=== PATIENT | female | born 2000 | race Caucasian/White ===

== ENCOUNTER 2024-03-17 07:33 | Emergency (ER) | payer MEDICAID, SELFPAY ==
[2024-03-17 07:44] VITALS: BP 126/71; PULSE 87; RESP 16; TEMP 36.8; O2SAT 96; BMI 35.6
[2024-03-17 08:10] LABS: Basophils % 0.6 %; Eosinophils # 0.2 10^3/uL (0.0-0.8); Eosinophils % 2.2 %; Hematocrit 40.7 % (36-47); Lymphocytes # 3.2 10^3/uL (0.8-4.8); Lymphocytes % 46.4 %; Mean Corpuscular HGB Conc 33.4 g/dL (30-55); Mean Corpuscular Hemoglobin 28.4 pg (27-33); Mean Platelet Volume 9.9 fL (7.4-10.4); Monocytes # 0.5 10^3/uL (0.2-0.9); Monocytes % 7.7 %; Neutrophils # 2.97 10^3/uL (1.8-7.7); Neutrophils % 42.8 %; Nucleated Red Blood Cells % 0 %; Platelet Count 174 10^3/cmm (157-399); Red Blood Count 4.79 10^6/uL (3.85-5.65); Red Cell Distribution Width 12.4 % (12.1-15.1); White Blood Count 6.92 10^3/uL (3.29-11.43)
--- NOTE | 2024-03-17 08:20 | ED_ITS ---
HPI - Abdominal Pain 2 General: Chief Complaint: Abdominal Pain Stated Complaint: Abd pain Time Seen by Provider: 03/17/24 07:34 Source: patient Mode of arrival: ambulatory Limitations: no limitations History of Present Illness: 23-year-old female states she been havin g abdominal cramping over the last week. She states she is mainly concerned she may be because she has been 1 week late for her menstruation has been having diffuse cramping denies any severe pain rates pain a 3 out of 10 denies any dysuria or vaginal discharge she had tubal ligation last year. Denies any vomiting or diarrhea Associated Symptoms: Denies chills, diarrhea, dysuria, fever(s), nausea and vomiting Related Data Date of Last Menstrual Period: 02/04/24 Previous Rx's Medication Instructions Recorded naproxen 500 mg tablet (Naprosyn) 500 mg PO BID PRN pain #20 tabs 03/17/24 ondansetron 4 mg disintegrating 4 mg PO Q6H PRN nausea and 03/17/24 tablet vomiting #14 tabs Allergies Allergy/AdvReac Type Severity Reaction Status Date / Time chlorhexidine Allergy ALGY-Hives Verified 03/17/24 07:54 Review of Systems 2 Const: Denies: fever(s), chills, body aches or change in appetite ENMT: Denies: throat pain or dental pain Card: Denies: chest pain Resp: Denies: dyspnea GI: Reports: abdominal pain; Denies: nausea, vomiting or diarrhea : Denies: dysuria Musc: Denies: neck pain or back pain Skin/Breast: Denies: rash Neuro: Denies: headache(s) [facility] ED 2 Female Reproductive History: Date of last menstrual period: 02/04/24 Physical Exam 2 Const: COMMON NORMALS: no acute distress, patient oriented x3 and healthy appearing HENMT: COMMON NORMALS: normocephalic and atraumatic HEAD & SCALP: n ormocephalic and atraumatic Eye: COMMON NORMALS: conjunctivae normal CONJUNCTIVA: Yes conjunctivae normal Neck/C-Spine: COMMON NORMALS: full ROM and supple Chest: COMMONS NORMALS: normal inspection of the chest Resp: COMMON NORMALS: normal respiratory effort Cardio: COMMON NORMALS: regular rate, regular rhythm and No murmurs present (Cardio) RATE: regular rate RHYTHM: regular rhythm GI: COMMON NORMALS: Normal to inspection, nondistended, normoactive bowel sounds present, Soft to palpation, non-tender and no masses PALPATION: Yes Soft to palpation Extremity: COMMON NORMALS: normal to inspection and full ROM Neuro: COMMON NORMALS: patient oriented x3, moves all extremities and no focal motor deficits Psych: COMMON NORMALS: mental status grossly normal, Normal thought process present and cooperative THOUGHT PROCESS: Normal thought process present Skin: COMMON NORMALS: no rashes or lesions noted and no wounds GENERAL SKIN EXAM: no rashes or lesions noted Course 2 Vital Signs: Vital signs: Vital Signs Temperature 98.3 F 03/17/24 07:44 Pulse Rate 87 03/17/24 07:44 Respiratory Rate 16 03/17/24 07:44 Blood Pressure 126/71 03/17/24 07:44 Pulse Oximetry 96 03/17/24 07:44 Oxygen Delivery Me thod Room Air 03/17/24 07:44 MDM - Abdominal Pain Medical Decision Making Patient presents here with abdominal pain her exam here is benign she has no signs of acute surgical abdomen blood work including white count and are negative no UTI no signs of STD she is to follow-up with her PCP return if worsening she understands agrees to plan. Medical Records I reviewed the patient's medical records. Lab Data I reviewed the patient's lab results. 03/17/24 07:56 03/17/24 07:56 Labs/Radiology: Laboratory Results WBC 6.92 10^3/uL (3.29-11.43) 03/17/24 07:56 RBC 4.79 10^6/uL (3.85-5.65) 03/17/24 07:56 Hgb 13.60 g/dL (11.27-16.99) 03/17/24 07:56 Hct 40.7 % (36-47) 03/17/24 07:56 MCV 85.0 fl (85-98) 03/17/24 07:56 MCH 28.4 pg (27-33) 03/17/24 07:56 MCHC 33.4 g/dL (30-55) 03/17/24 07:56 RDW 12.4 % (12.1-15.1) 03/17/24 07:56 Plt Count 174 10^3/cmm (157-399) 03/17/24 07:56 MPV 9.9 fL (7.4-10.4) 03/17/24 07:56 Neut % (Auto) 42.8 % 03/17/24 07:56 Lymph % (Auto) 46.4 % 03/17/24 07:56 Weber % (Auto) 7.7 % 03/17/24 07:56 Eos % (Auto) 2.2 % 03/17/24 07:56 Baso % (Auto) 0.6 % 03/17/24 07:56 Neut # (Auto) 2.97 10^3/uL (1.8-7.7) 03/17/24 07:56 Lymph # (Auto) 3.2 10^3/uL (0.8-4.8) 03/17/24 07:56 Weber # (Auto) 0.5 10^3/uL (0.2-0.9) 03/17/24 07:56 Eos # (Auto) 0.2 10^3/uL (0.0-0.8) 03/17/24 07:56 Baso # (Auto) 0.0 10^3/uL (0.0-0.1) 03/17/24 07:56 Nucleated RBC % (auto) 0 % 03/17/24 07:56 Nucleated RBCs # 0.0 /100WBC 03/17/24 07:56 Sodium 138 mmol/L (136-145) 03/17/24 07:56 Potassium 3.6 mmol/L (3.5-5.1) 03/17/24 07:56 Chloride 103 mmol/L (98-107) 03/17/24 07:56 Carbon Dioxide 19 mmol/L (22-29) L 03/17/24 07:56 Anion Gap 19.6 (5-19) H 03/17/24 07:56 BUN 8 mg/dL (6-20) 03/17/24 07:56 Creatinine 0.7 mg/dL (0.5-0.9) 03/17/24 07:56 GFR Calculation 102.0 mL/min (90-130) 03/17/24 07:56 Glucose 95 mg/dL (65-115) 03/17/24 07:56 Calculated Osmolality 284 mOsm/kg (285-295) L 03/17/24 07:56 Calcium 8.8 mg/dL (8.5-10.5) 03/17/24 07:56 Total Bilirubin 0.6 mg/dL (0.15-1.2) 03/17/24 07:56 AST 15 U/L (0-32) 03/17/24 07:56 ALT 14 U/L (0-33) 03/17/24 07:56 Alkaline Phosphatase 70 U/L (35-105) 03/17/24 07:56 Total Protein 6.7 g/dL (6.6-8.7) 03/17/24 07:56 Albumin 4.0 g/dL (3.5-5.2) 03/17/24 07:56 Globulin 2.7 g/dL (1.3-4.6) 03/17/24 07:56 Lipase 20 U/L (13-60) 03/17/24 07:56 HCG, Qual Negative (Negative) 03/17/24 07:56 Urine Color Dark yellow (Yellow) A 03/17/24 08:10 Urine Appearance Clear (CLEAR) 03/17/24 08:10 Urine pH 5.5 (5-7) 03/17/24 08:10 Ur Specific [place] 1.031 (1.005-1.030) H 03/17/24 08:10 Urine Protein Trace (Negative) A 03/17/24 08:10 Urine Glucose (UA) Negative (Normal) 03/17/24 08:10 Urine Ketones Trace (Negative) 03/17/24 08:10 Urine Blood Negative (Negative) 03/17/24 08:10 Urine Nitrate Negative (Negative) 03/17/24 08:10 Urine Bilirubin Negative (Negative) 03/17/24 08:10 Urine Urobilinogen 1.0 mg/dL (Negative) 03/17/24 08:10 Ur Leukocyte Esterase Negative (Negative) 03/17/24 08:10 Urine RBC 0-2 /hpf (0-2) 03/17/24 08:10 Urine WBC 0-5 /hpf (0-5) 03/17/24 08:10 Ur Squamous Epith Cells 0-5 /hpf (0-5) 03/17/24 08:10 Amorphous Sediment Not Reportable 03/17/24 08:10 Urine Bacteria None seen /hpf (NONE) 03/17/24 08:10 Hyaline Casts 1.21 /lpf 03/17/24 08:10 No radiology studies performed this visit Discharge Plan Discharge Patient Disposition: Home Clinical Impression: Abdominal pain Condition: Stable Prescriptions: New ondansetron 4 mg tablet,disintegrating 4 mg PO Q6H PRN (Reason: nausea and vomiting) Qty: 14 0RF naproxen [Naprosyn] 500 mg tablet 500 mg PO BID PRN (Reason: pain) Qty: 20 0RF Discharge Orders: Discharge ED (Routine); Ordered 03/17/24 Ordered By: Ari Palumbo Referrals: Kaye Herzog [Primary Care Provider] - Discharge Diet: Advance as tolerated Discharge Activity: Resume usual activity Patient Instructions: Abdominal Pain (ED) Coding Level of Care Code ED Personal Care Service Provider for Bk Evans
[2024-03-17 08:26] LABS: HCG, Serum Qual Negative (Negative)
[2024-03-17 08:27] LABS: Alanine Aminotransferase 14 U/L (0-33); Alkaline Phosphatase 70 U/L (35-105); Anion Gap 19.6 (5-19); Aspartate Amino Transferase 15 U/L (0-32); Blood Urea Nitrogen 8 mg/dL (6-20); Calcium 8.8 mg/dL (8.5-10.5); Carbon Dioxide 19 mmol/L (22-29); Chloride 103 mmol/L (98-107); Creatinine Clr Calc Pharmacy 141.6359; Globulin 2.7 g/dL (1.3-4.6); Glucose 95 mg/dL (65-115); Lipase 20 U/L (13-60); Osmolality Calculated 284 mOsm/kg (285-295); Potassium 3.6 mmol/L (3.5-5.1); Sodium 138 mmol/L (136-145); Total Bilirubin 0.6 mg/dL (0.15-1.2); Total Protein 6.7 g/dL (6.6-8.7)
[2024-03-17 08:43] LABS: Bilirubin Urine Negative (Negative); Blood Urine Negative (Negative); Glucose Urine UA Negative (Normal); Ketones Urine Trace (Negative); Leukocyte Esterase Urine Negative (Negative); Nitrate Urine Negative (Negative); Protein Urine Trace (Negative); Urine Appearance Clear (CLEAR); Urine Color Dark Yellow (Yellow); pH Urine 5.5 (5-7)
[2024-03-17 08:48] LABS: Add Urine Microscopic? YES; Bacteria Urine None Seen /hpf; Hyaline Casts Urine 1.21 /lpf; RBC Urine 0-2 /hpf (0-2); Squamous Epithelial Cell Urine 0-5 /hpf (0-5); WBC Urine 0-5 /hpf (0-5)
[2024-03-17 08:51] LABS: Specific Gravity, Urine 1.031 (1.005-1.030)
[2024-03-17 09:15] VITALS: BP 112/67; PULSE 82; O2SAT 98
[2024-03-17] MEDS: ondansetron 4 MG Tablet PO (09:20)
== END 2024-03-17 09:20 | disposition home or self-care (01) ==
PROVIDERS: Emergency Provider Emergency Medicine; PCP Nurse Practitioner Family
DX: R10.9 Unspecified abdominal pain (principal)
CPT/HCPCS: 36415; 80053; 81001; 83690; 84703; 85025; 99283; Q0162

== ENCOUNTER 2024-03-31 22:04 | Emergency (ER) | payer MEDICAID, SELFPAY ==
[2024-03-31 22:08] VITALS: BP 113/69; PULSE 59; RESP 20; TEMP 37.1; O2SAT 99; BMI 33.3
--- NOTE | 2024-03-31 22:12 | XRR_ITS ---
PROCEDURE INFORMATION: Exam: XR Chest Exam date and time: 03/31/2024 10:18 PM Age: 23 years old Clinical indication: EMS arrival for syncope TECHNIQUE: Imaging protocol: Radiologic exam of the chest. Views: 1 view. COMPARISON: No relevant prior studies available. FINDINGS: Lungs: Unremarkable. No consolidation. Pleural spaces: Unremarkable. No pleural effusion. No pneumothorax. Heart/Mediastinum: Unremarkable. No cardiomegaly. Bones/joints: Unremarkable. XR/XR chest 1V portable [id number] IMPRESSION: No acute findings.
--- NOTE | 2024-03-31 22:12 | CTR_ITS ---
PROCEDURE INFORMATION: Exam: CT Cervical Spine Without Contrast Exam date and time: 03/31/2024 10:27 PM Age: 23 years old Clinical indication: Injury or trauma; Blunt trauma; EMS arrival from home for syncope with fall. C collar in place. ; Additional info: Fall, syncope TECHNIQUE: Imaging protocol: Computed tomography of the cervical spine without contrast. Radiation optimization: All CT scans at this facility use at least one of these dose optimization techniques: automated exposure control; mA and/or kV adjustment per patient size (includes targeted exams where dose is matched to clinical indication); or iterative reconstruction. COMPARISON: CT head wo con* [id number] 03/31/2024 10:24 PM RADIATION DOSE METRICS: Total DLP (mGy-cm): 346.07 FINDINGS: Bones: No acute fracture. Normal alignment. 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 This is nonacute. No significant disc bulge or herniation. No severe spinal canal stenosis. No significant neural foraminal narrowing. Lungs: Lung apices are normal. Soft tissues: Unremarkable. CT/CT cervical spin wo con* [id number] IMPRESSION: No acute findings.
--- NOTE | 2024-03-31 22:12 | ECG_ITS ---
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
--- NOTE | 2024-03-31 22:12 | CTR_ITS ---
PROCEDURE INFORMATION: Exam: CT Head Without Contrast Exam date and time: 03/31/2024 10:24 PM Age: 23 years old Clinical indication: Injury or trauma; Blunt trauma (contusions or hematomas); Syncope and collapse; EMS arrival from home for syncope with fall. C collar in place. TECHNIQUE: Imaging protocol: Computed tomography of the head without contrast. Radiation optimization: All CT scans at this facility use at least one of these dose optimization techniques: automated exposure control; mA and/or kV adjustment per patient size (includes targeted exams where dose is matched to clinical indication); or iterative reconstruction. COMPARISON: No relevant prior studies available. RADIATION DOSE METRICS: Total DLP (mGy-cm): 1070.38 FINDINGS: Brain: No focal hemorrhage or midline shift is identified. There is borderline cerebellar tonsillar ectopia present with no strong evidence of an actual Chiari 1 malformation. Cerebral ventricles: No ventriculomegaly or evidence of acute hydrocephalus. Paranasal sinuses: The partially assessed sinuses are grossly clear. Mastoid air cells: Visualized mastoid air cells are well aerated. Bones: Unremarkable. No acute fracture. Soft tissues: Unremarkable. CT/CT head wo con* [id number] IMPRESSION: No acute intracranial abnormality.
--- NOTE | 2024-03-31 22:13 | ED_ITS ---
HPI - Syncope 2 General: Chief Complaint: Syncope Stated Complaint: Syncope Time Seen by Provider: 03/31/24 22:06 Source: patient Mode of arrival: ambulatory Limitations: no limitations History of Present Illness: Patient is a 23-year-old female presents to ED today via EMS following a syncopal episode. Patient states she was standing in the bathroom having a conversation with her who was in the shower when the next thing I knew I was passed out on the floor. According to the her eyes rolled back. She was semiconscious/responsive for him until EMS arrived. There was no seizure like activity. No postictal period. Patient does not remember feeling dizzy or lightheaded. She does states she hit her head. She does remember feeling very anxious throughout the day. She did start a new medication, hydroxyzine, today and took a 25mg tablet around 2 to 3 PM this afternoon. Patient has never had similar syncopal episodes. Denies chest pain, shortness of breath, palpitations. Patient does use marijuana. MD complaint: seizure Onset (ago): hour(s) -: minutes(s) Prodromal symptoms: none Witnessed: Yes - by Bystander Context: at rest Injuries sustained associated with event: neck and head Associated symptoms: Deny abdominal pain, chest pain, fever(s), headache(s), lightheadedness or nausea Treatments prior to arrival: none Related Data Previous Rx's ?Medication ?Instructions ?Recorded naproxen 500 mg tablet (Naprosyn) 500 mg PO BID PRN pa in #20 tabs 03/17/24 ondansetron 4 mg disintegrating 4 mg PO Q6H PRN nausea and 03/17/24 tablet vomiting #14 tabs Allergies Allergy/AdvReac Type Severity Reaction Status Date / Time chlorhexidine Allergy ALGY-Hives Verified 03/17/24 07:54 Review of Systems 2 Const: Denies: fever(s), chills, body aches, fatigue or malaise Eyes: Denies: change in vision, blurry vision, floaters or seeing flashes Card: Reports: syncope; Denies: chest pain, palpitations, irregular heart rhythm, edema, swelling of feet/ankles, lightheadedness, dyspnea on exertion or orthopnea Resp: Denies: dyspnea GI: Denies: abdominal pain, nausea or vomiting : Denies: flank pain or dysuria Musc: Denies: neck pain, back pain, extremity pain, joint swelling or joint redness Skin/Breast: Denies: rash Neuro: Denies: headache(s), numbness in extremities, weakness in extremities, sensory changes or dizziness Psych: Reports: anxiety Physical Exam 2 Const: COMMON NORMALS: no acute distress, average body habitus, patient oriented x3, no limitations, healthy appearing, alert and well nourished G ENERAL APPEARANCE: cooperative ORIENTATION/CONSCIOUSNESS: Yes awake, Yes oriented to person, Yes oriented to place and Yes oriented to time HENMT: COMMON NORMALS: normocephalic and atraumatic HEAD & SCALP: normal to inspection, normocephalic and atraumatic FACE & SINUS: normal facial exam Eye: COMMON NORMALS: Equal, round and reactive pupils present and EOMs intact bilaterally GENERAL EYE: appearance normal, both eyes and all related structures and normal light reflex PUPIL: Yes Equal, round and reactive pupils present DIRECT OPHTHALMOSCOPY: Yes normal light reflex Neck/C-Spine: CERVICAL SPINE: Yes Cervical spine tenderness OTHER: in c-collar by EMS; this was not removed for ROM testing Resp: COMMON NORMALS: normal respiratory effort and clear to auscultation bilaterally AUSCULTATION: clear to auscultation bilaterally Cardio: COMMON NORMALS: regular rate and regular rhythm RATE: regular rate RHYTHM: regular rhythm GI: COMMON NORMALS: Normal to inspection, nondistended, normoactive bowel sounds present, Soft to palpation, non-tender and no masses PALPATION: Yes Soft to palpation : COMMON NORMALS: Yes no CVA tenderness BLADDER/KIDNEY EXAM: Yes no CVA tenderness Back/Pelvis: COMMON NORMALS: no CVA tenderness, thoracic and lumbar spine normal to inspection and no thoracic nor lumbar tenderness Extremity: GENERAL: Yes normal exam except as noted Neuro: CARLA COMA SCALE: document GCS findings Carla coma scale eye opening: Spontaneous Carla coma scale verbal response: Orientated [place] coma scale motor response: Obey commands Carla coma scale total score: 15 COMMON NORMALS: patient oriented x3, CN's II-XII intact bilaterally, moves all extremities, no focal motor deficits and no sensory deficits noted S ENSORIUM/ORIENTATION: Yes alert, Yes oriented to person, Yes oriented to place and Yes oriented to time Skin: COMMON NORMALS: no rashes or lesions noted GENERAL SKIN EXAM: no rashes or lesions noted Course 2 Vital Signs: Vital signs: Vital Signs Temperature 98.7 F 03/31/24 22:08 Pulse Rate 90 03/31/24 22:58 Respiratory Rate 16 03/31/24 22:58 Blood Pressure 101/58 03/31/24 22:58 Pulse Oximetry 100 03/31/24 22:58 Oxygen Delivery Me thod Room Air 03/31/24 22:58 MDM - Syncope Medical Decision Making No obvious etiology for her syncope. Her vital signs have been stable. EKG without concerning findings. Her blood work is unremarkable. Imaging ordered due to trauma related to her syncope including CT head, cervical spine-these were unremarkable. Patient will be allowed discharge with recommendations to follow-up with her primary care provider. Return to ED precautions discussed. Medical Records I reviewed the patient's medical records. Lab Data I reviewed the patient's lab results. 03/31/24 22:56 03/31/24 22:56 Radiology Impressions Cervical Spine CT 03/31/24 22:12 IMPRESSION: No acute findings. Chest X-Ray 03/31/24 22:12 IMPRESSION: No acute findings. Head CT 03/31/24 22:12 IMPRESSION: No acute intracranial abnormality. Laboratory Results WBC 6.01 10^3/uL (3.29-11.43) 03/31/24 22:56 RBC 4.45 10^6/uL (3.85-5.65) 03/31/24 22:56 Hgb 12.60 g/dL (11.27-16.99) 03/31/24 22:56 Hct 39.4 % (36-47) 03/31/24 22:56 MCV 88.5 fl (85-98) 03/31/24 22:56 MCH 28.3 pg (27-33) 03/31/24 22:56 MCHC 32.0 g/dL (30-55) 03/31/24 22:56 RDW 12.4 % (12.1-15.1) 03/31/24 22:56 Plt Count 160 10^3/cmm (157-399) 03/31/24 22:56 MPV 10.1 fL (7.4-10.4) 03/31/24 22:56 Neut % (Auto) 52.4 % 03/31/24 22:56 Lymph % (Auto) 37.8 % 03/31/24 22:56 Glenn % (Auto) 7.5 % 03/31/24 22:56 Eos % (Auto) 1.3 % 03/31/24 22:56 Baso % (Auto) 0.8 % 03/31/24 22:56 Neut # (Auto) 3.15 10^3/uL (1.8-7.7) 03/31/24 22:56 Lymph # (Auto) 2.3 10^3/uL (0.8-4.8) 03/31/24 22:56 Glenn # (Auto) 0.5 10^3/uL (0.2-0.9) 03/31/24 22:56 Eos # (Auto) 0.1 10^3/uL (0.0-0.8) 03/31/24 22:56 Baso # (Auto) 0.1 10^3/uL (0.0-0.1) 03/31/24 22:56 Nucleated RBC % (auto) 0 % 03/31/24 22:56 Nucleated RBCs # 0.0 /100WBC 03/31/24 22:56 Sodium 139 mmol/L (136-145) 03/31/24 22:56 Potassium 3.5 mmol/L (3.5-5.1) 03/31/24 22:56 Chloride 103 mmol/L (98-107) 03/31/24 22:56 Carbon Dioxide 23 mmol/L (22-29) 03/31/24 22:56 Anion Gap 16.5 (5-19) 03/31/24 22:56 BUN 8 mg/dL (6-20) 03/31/24 22:56 Creatinine 0.8 mg/dL (0.5-0.9) 03/31/24 22:56 GFR Calculation 87.4 mL/min (90-130) L 03/31/24 22:56 Glucose 103 mg/dL (65-115) 03/31/24 22:56 Calculated Osmolality 287 mOsm/kg (285-295) 03/31/24 22:56 Calcium 8.3 mg/dL (8.5-10.5) L 03/31/24 22:56 Total Bilirubin 0.4 mg/dL (0.15-1.2) 03/31/24 22:56 AST 13 U/L (0-32) 03/31/24 22:56 ALT 10 U/L (0-33) 03/31/24 22:56 Alkaline Phosphatase 70 U/L (35-105) 03/31/24 22:56 Total Protein 6.6 g/dL (6.6-8.7) 03/31/24 22:56 Albumin 3.8 g/dL (3.5-5.2) 03/31/24 22:56 Globulin 2.8 g/dL (1.3-4.6) 03/31/24 22:56 HCG, Qual Negative (Negative) 03/31/24 22:56 All radiology interpretation(s) finalized by discharge Discharge Plan Discharge Patient Disposition: Home Clinical Impression: Syncope Qualifiers: Syncope type: unspecified Qualified Code(s): R55 - Syncope and collapse Condition: Stable Prescriptions: No Action ondansetron 4 mg tablet,disintegrating 4 mg PO Q6H PRN (Reason: nausea and vomiting) Qty: 14 0RF naproxen [Naprosyn] 500 mg tablet 500 mg PO BID PRN (Reason: pain) Qty: 20 0RF Discharge Orders: Discharge ED (Routine); Ordered 03/31/24 Ordered By: Gisele Kirkland Referrals: Kaye Herzog [Primary Care Provider] - Patient Instructions: Syncope (DC) Activity Restrictions/Additional Instructions: As we discussed, I did not find any obvious etiologies for your syncopal episode. Her blood work here is unremarkable. EKG is nonconcerning. I recommend you follow-up with your primary care provider next week for reevaluation. You may return to the emergency department for any further concerns you may have. Print Language: Sammarinese Coding Level of Care Code ED Freight [employer]man for Bk Evans
[2024-03-31 22:58] VITALS: BP 101/58; PULSE 90; RESP 16; O2SAT 100
[2024-03-31 23:30] LABS: Basophils # 0.1 10^3/uL (0.0-0.1); Basophils % 0.8 %; Eosinophils # 0.1 10^3/uL (0.0-0.8); Eosinophils % 1.3 %; Hematocrit 39.4 % (36-47); Lymphocytes # 2.3 10^3/uL (0.8-4.8); Lymphocytes % 37.8 %; Mean Corpuscular Hemoglobin 28.3 pg (27-33); Mean Corpuscular Volume 88.5 fl (85-98); Mean Platelet Volume 10.1 fL (7.4-10.4); Monocytes # 0.5 10^3/uL (0.2-0.9); Monocytes % 7.5 %; Neutrophils # 3.15 10^3/uL (1.8-7.7); Neutrophils % 52.4 %; Nucleated Red Blood Cells % 0 %; Platelet Count 160 10^3/cmm (157-399); Red Blood Count 4.45 10^6/uL (3.85-5.65); Red Cell Distribution Width 12.4 % (12.1-15.1); White Blood Count 6.01 10^3/uL (3.29-11.43)
[2024-03-31 23:45] LABS: HCG, Serum Qual Negative (Negative)
[2024-03-31 23:50] LABS: Alanine Aminotransferase 10 U/L (0-33); Albumin Level 3.8 g/dL (3.5-5.2); Alkaline Phosphatase 70 U/L (35-105); Anion Gap 16.5 (5-19); Aspartate Amino Transferase 13 U/L (0-32); Blood Urea Nitrogen 8 mg/dL (6-20); Calcium 8.3 mg/dL (8.5-10.5); Carbon Dioxide 23 mmol/L (22-29); Chloride 103 mmol/L (98-107); Creatinine Clr Calc Pharmacy 119.6202; Globulin 2.8 g/dL (1.3-4.6); Glomerular Filtration Rate 87.4 mL/min (90-130); Glucose 103 mg/dL (65-115); Osmolality Calculated 287 mOsm/kg (285-295); Potassium 3.5 mmol/L (3.5-5.1); Sodium 139 mmol/L (136-145); Total Bilirubin 0.4 mg/dL (0.15-1.2); Total Protein 6.6 g/dL (6.6-8.7)
[2024-04-01 00:14] VITALS: BP 98/64; PULSE 63; RESP 16; O2SAT 100
== END 2024-04-01 00:13 | disposition home or self-care (01) ==
PROVIDERS: Emergency Provider Physician Assistant; PCP Nurse Practitioner Family
DX: R55 Syncope and collapse (principal)
CPT/HCPCS: 36415; 70450; 71045; 72125; 80053; 84703; 85025; 93005; 99285

== ENCOUNTER 2024-05-19 09:26 | Emergency (ER) | payer MEDICAID, SELFPAY ==
[2024-05-19 09:29] VITALS: BP 116/76; PULSE 102; RESP 17; TEMP 37; O2SAT 96; BMI 26.6
[2024-05-19 09:55] LABS: Basophils # 0.1 10^3/uL (0.0-0.1); Eosinophils # 0.2 10^3/uL (0.0-0.8); Eosinophils % 3.8 %; Hematocrit 41.6 % (36-47); Lymphocytes # 2.3 10^3/uL (0.8-4.8); Mean Corpuscular HGB Conc 33.9 g/dL (30-55); Mean Corpuscular Hemoglobin 29.3 pg (27-33); Mean Corpuscular Volume 86.3 fl (85-98); Mean Platelet Volume 10.3 fL (7.4-10.4); Monocytes # 0.5 10^3/uL (0.2-0.9); Monocytes % 7.8 %; Neutrophils # 2.97 10^3/uL (1.8-7.7); Neutrophils % 49.1 %; Nucleated Red Blood Cells % 0 %; Platelet Count 198 10^3/cmm (157-399); Red Blood Count 4.82 10^6/uL (3.85-5.65); Red Cell Distribution Width 12.9 % (12.1-15.1); White Blood Count 6.05 10^3/uL (3.29-11.43)
[2024-05-19 10:01] LABS: Add Urine Microscopic? YES; Bacteria Urine TRACE /hpf; Bilirubin Urine 1+ (Negative); Blood Urine Neg (Negative); Glucose Urine UA Norm (Normal); Ketones Urine 1+ (Negative); Leukocyte Esterase Urine Trace (Negative); Nitrate Urine Negative (Negative); Protein Urine 1+ (Negative); RBC Urine 0-4 /hpf (0-2); UA Manual Slide Review YES; Urine Appearance Clear (CLEAR); Urine Color Yellow (Yellow); Urobilinogen Urine 1 mg/dL (Negative); pH Urine 5 (5-7)
[2024-05-19 10:09] LABS: HCG, Serum Qual Negative (Negative)
[2024-05-19 10:58] LABS: Alanine Aminotransferase 11 U/L (0-33); Albumin Level 4.3 g/dL (3.5-5.2); Alkaline Phosphatase 83 U/L (35-105); Anion Gap 16.7 (5-19); Aspartate Amino Transferase 16 U/L (0-32); Blood Urea Nitrogen 11 mg/dL (6-20); Calcium 9.1 mg/dL (8.5-10.5); Carbon Dioxide 22 mmol/L (22-29); Chloride 105 mmol/L (98-107); Creatinine Clr Calc Pharmacy 107.3044; Globulin 3.3 g/dL (1.3-4.6); Glomerular Filtration Rate 87.4 mL/min (90-130); Glucose 82 mg/dL (65-115); Osmolality Calculated 288 mOsm/kg (285-295); Potassium 3.7 mmol/L (3.5-5.1); Sodium 140 mmol/L (136-145); Total Bilirubin 0.6 mg/dL (0.15-1.2); Total Protein 7.6 g/dL (6.6-8.7)
--- NOTE | 2024-05-19 11:50 | ED_ITS ---
HPI - Female Genitourinary 2 General: Chief complaint: Urogenital-Female Stated complaint: lower back pain, trouble urinating Time Seen by Provider: 05/19/24 09:28 History of Present Illness: 23-year-old female who presents to the mergency room with complaints of low back pain trouble urinating pain burning frequency. Began overnight no fever she has not noticed any hematuria. No significant flank pain. No vomiting or diarrhea Associated symptoms: Deny abdominal pain Related Data Previous Rx's ?Medication ?Instructions ?Recorded ciprofloxacin HCl 250 mg tablet 250 mg PO BID #14 tabs 05/19/24 (Cipro) phenazopyridine 200 mg tablet 200 mg PO Q8H 6 doses #6 tabs 05/19/24 (Pyridium) Allergies Allergy/AdvReac Type Severity Reaction Status Date / Time chlorhexidine Allergy ALGY-Hives Verified 03/17/24 07:54 Review of Systems 2 Const: Denies: fever(s) or chills Card: Denies: chest pain Resp: Denies: dyspnea GI: Denies: abdominal pain : Reports: dysuria, urinary frequency and urinary urgency Musc: Denies: neck pain or back pain Skin/Breast: Denies: rash Physical Exam 2 Const: GENERAL APPEARANCE: cooperative ORIENTATION/CONSCIOUSNESS: Yes awake, Yes oriented to person, Yes oriented to place and Yes oriented to time HENMT: COMMON NORMALS: normocephalic, atraumatic and hearing grossly normal bilaterally HEAD & SCALP: normocephalic and atraumatic Resp: COMMON NORMALS: normal respiratory effort, No retractions, No use of accessory muscles and clear to auscultation bilaterally AUSCULTATION: clear to auscultation bilaterally Cardio: COMMON NORMALS: regular rate, regular rhythm and No murmurs present (Cardio) RATE: regular rate RHYTHM: regular rhythm GI: COMMON NORMALS: Soft to palpation and No hepatosplenomegaly present A USCULTATION: Yes normoactive bowel sounds PALPATION: Yes Soft to palpation, No Tenderness to palpation present (GI), No Guarding due to palpation present (GI) and Yes No hepatosplenomegaly present : COMMON NORMALS: Yes no CVA tenderness BLADDER/KIDNEY EXAM: Yes no CVA tenderness Back/Pelvis: COMMON NORMALS: no CVA tenderness Extremity: COMMON NORMALS: normal to inspection, capillary refill normal, no clubbing, cyanosis or edema, no calf tenderness and no pedal edema Neuro: SENSORIUM/ORIENTATION: Yes oriented to person, Yes oriented to place and Yes oriented to time Skin: COMMON NORMALS: no rashes or lesions noted GENERAL SKIN EXAM: no rashes or lesions noted Course 2 Vital Signs: Vital signs: Vital Signs Temperature 98.6 F 05/19/24 09:29 Pulse Rate 102 H 05/19/24 09:29 Respiratory Rate 17 05/19/24 09:29 Blood Pressure 116/76 05/19/24 09:29 Pulse Oximetry 96 05/19/24 09:29 Oxygen Delivery Me thod Room Air 05/19/24 09:29 MDM - Female Medical Decision Making Mild cystitis. Started on Cipro 250 twice daily for 7 days also put on Pyridium for bladder anesthetic increase fluids follow-up as needed Lab Data 05/19/24 09:47 05/19/24 10:33 Laboratory Results WBC 6.05 10^3/uL (3.29-11.43) 05/19/24 09:47 RBC 4.82 10^6/uL (3.85-5.65) 05/19/24 09:47 Hgb 14.10 g/dL (11.27-16.99) 05/19/24 09:47 Hct 41.6 % (36-47) 05/19/24 09:47 MCV 86.3 fl (85-98) 05/19/24 09:47 MCH 29.3 pg (27-33) 05/19/24 09:47 MCHC 33.9 g/dL (30-55) 05/19/24 09:47 RDW 12.9 % (12.1-15.1) 05/19/24 09:47 Plt Count 198 10^3/cmm (157-399) 05/19/24 09:47 MPV 10.3 fL (7.4-10.4) 05/19/24 09:47 Neut % (Auto) 49.1 % 05/19/24 09:47 Lymph % (Auto) 38.0 % 05/19/24 09:47 [place] % (Auto) 7.8 % 05/19/24 09:47 Eos % (Auto) 3.8 % 05/19/24 09:47 Baso % (Auto) 1.0 % 05/19/24 09:47 Neut # (Auto) 2.97 10^3/uL (1.8-7.7) 05/19/24 09:47 Lymph # (Auto) 2.3 10^3/uL (0.8-4.8) 05/19/24 09:47 [place] # (Auto) 0.5 10^3/uL (0.2-0.9) 05/19/24 09:47 Eos # (Auto) 0.2 10^3/uL (0.0-0.8) 05/19/24 09:47 Baso # (Auto) 0.1 10^3/uL (0.0-0.1) 05/19/24 09:47 Nucleated RBC % (auto) 0 % 05/19/24 09:47 Nucleated RBCs # 0.0 /100WBC 05/19/24 09:47 Sodium 140 mmol/L (136-145) 05/19/24 10:33 Potassium 3.7 mmol/L (3.5-5.1) 05/19/24 10:33 Chloride 105 mmol/L (98-107) 05/19/24 10:33 Carbon Dioxide 22 mmol/L (22-29) 05/19/24 10:33 Anion Gap 16.7 (5-19) 05/19/24 10:33 BUN 11 mg/dL (6-20) 05/19/24 10:33 Creatinine 0.8 mg/dL (0.5-0.9) 05/19/24 10:33 GFR Calculation 87.4 mL/min (90-130) L 05/19/24 10:33 Glucose 82 mg/dL (65-115) 05/19/24 10:33 Calculated Osmolality 288 mOsm/kg (285-295) 05/19/24 10:33 Calcium 9.1 mg/dL (8.5-10.5) 05/19/24 10:33 Total Bilirubin 0.6 mg/dL (0.15-1.2) 05/19/24 10:33 AST 16 U/L (0-32) 05/19/24 10:33 ALT 11 U/L (0-33) 05/19/24 10:33 Alkaline Phosphatase 83 U/L (35-105) 05/19/24 10:33 Total Protein 7.6 g/dL (6.6-8.7) 05/19/24 10:33 Albumin 4.3 g/dL (3.5-5.2) 05/19/24 10:33 Globulin 3.3 g/dL (1.3-4.6) 05/19/24 10:33 HCG, Qual Negative (Negative) 05/19/24 09:47 Urine Color Yellow (Yellow) 05/19/24 09:36 Urine Appearance Clear (CLEAR) 05/19/24 09:36 Urine pH 5 (5-7) 05/19/24 09:36 Ur Specific [place] 1.030 (1.005-1.030) 05/19/24 09:36 Urine Protein 1+ (Negative) H 05/19/24 09:36 Urine Glucose (UA) Norm (Normal) 05/19/24 09:36 Urine Ketones 1+ (Negative) H 05/19/24 09:36 Urine Blood Neg (Negative) 05/19/24 09:36 Urine Nitrate Negative (Negative) 05/19/24 09:36 Urine Bilirubin 1+ (Negative) H 05/19/24 09:36 Urine Urobilinogen 1 mg/dL (Negative) H 05/19/24 09:36 Ur Leukocyte Esterase Trace (Negative) H 05/19/24 09:36 Urine RBC 0-4 /hpf (0-2) H 05/19/24 09:36 Urine WBC 5-10 /hpf (0-5) H 05/19/24 09:36 Ur Squamous Epith Cells 5-10 /hpf (0-5) H 05/19/24 09:36 Amorphous Sediment Not Reportable 05/19/24 09:36 Urine Bacteria Trace /hpf (NONE) 05/19/24 09:36 No radiology studies performed this visit Discharge Plan Discharge Patient Disposition: Home Clinical Impression: Urinary tract infection Condition: Stable Prescriptions: New ciprofloxacin HCl [Cipro] 250 mg tablet 250 mg PO BID Qty: 14 0RF phenazopyridine [Pyridium] 200 mg tablet 200 mg PO Q8H Qty: 6 0RF Discharge Orders: Discharge ED (Routine); Ordered 05/19/24 Ordered By: Scott Morales Referrals: Kaye Hezrog [Primary Care Provider] - Discharge Diet: Usual diet Discharge Activity: Resume usual activity Patient Instructions: Urinary Tract Infection in Women (ED), Opioid Safety, Pain Management Activity Restrictions/Additional Instructions: Thank you for choosing [facility] for your healthcare needs today. It is very important that you follow up as instructed or that you return to the Emergency Department should you have concerns or if your condition changes or worsens in any way. 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
[2024-05-19 11:51] VITALS: BP 113/71; PULSE 78; O2SAT 98
== END 2024-05-19 11:51 | disposition home or self-care (01) ==
PROVIDERS: Physician Assistant; Emergency Provider Family Medicine; PCP Nurse Practitioner Family
DX: N39.0 Urinary tract infection, site not specified (principal)
CPT/HCPCS: 36415; 80053; 81001; 84703; 85025; 99283

== ENCOUNTER 2024-05-28 16:06 | Emergency (ER) | payer MEDICAID, SELFPAY ==
[2024-05-28 16:29] VITALS: BP 122/81; PULSE 89; RESP 17; TEMP 36.6; O2SAT 98; BMI 26.9
--- NOTE | 2024-05-28 16:55 | ED_ITS ---
HPI - Asthma General: Chief Complaint: Asthma Stated Complaint: issues with asthema Time Seen by Provider: 05/28/24 16:26 Source: patient Mode of arrival: ambulatory Limitations: no limitations History of Present Illness: 23-year-old female has a history of asth ma states that she does not have a nebulizer machine at home over the last few days she has had some increased wheezing and some mild dyspnea she denies any severe coughing or fever she is in no distress here pulse ox 98%. Denies any worse improved factors. Associated symptoms: Deny chest pain or fever(s) Related Data Previous Rx's ?Medication ?Instructions ?Recorded albuterol sulfate 2.5 mg/3 mL 2.5 mg (3 mL) inhalation Q4H PRN 05/28/24 (0.083 %) solution for nebulization shortness of breat h or wheezing #90 mL prednisone 50 mg tablet 50 mg PO DAILY #5 tabs 05/28 Allergies Allergy/AdvReac Type Severity Reaction Status Date / Time chlorhexidine Allergy ALGY-Hives Verified 03/17/24 07:54 Review of Systems Const: Denies: fever(s), chills, body aches or change in appetite ENMT: Denies: throat pain or dental pain Card: Denies: chest pain Resp: Reports: dyspnea and wheezing GI: Denies: abdominal pain, nausea, vomiting or diarrhea Musc: Denies: neck pain or back pain Skin/Breast: Denies: rash Neuro: Denies: headache(s) Physical Exam Const: COMMON NORMALS: no acute distress, patient oriented x3 and healthy appearing HENMT: COMMON NORMALS: normocephalic and atraumatic HEAD & SCALP: normocephalic and atraumatic Eye: COMMON NORMALS: conjunctivae normal CONJUNCTIVA: Yes conjunctivae normal Neck/C-Spine: COMMON NORMALS: full ROM and supple Chest: COMMONS NORMALS: normal inspection of the chest Resp: COMMON NORMALS: normal respiratory effort, No retractions and No use of accessory muscles AUSCULTATION: wheezes Cardio: COMMON NORMALS: regular rate, regular rhythm and No murmurs present ( Cardio) RATE: regular rate RHYTHM: regular rhythm Extremity: COMMON NORMALS: normal to inspection and full ROM Neuro: COMMON NORMALS: patient oriented x3, moves all extremities and no focal motor deficits Psych: COMMON NORMALS: mental status grossly normal, Normal thought process present and cooperative THOUGHT PROCESS: Normal thought process present Skin: COMMON NORMALS: no rashes or lesions noted and no wounds GENERAL SKIN EXAM: no rashes or lesions noted Course Vital Signs: Vital signs: Vital Signs Temperature 97.9 F 05/28/24 16:29 Pulse Rate 89 05/28/24 16:29 Respiratory Rate 17 05/28/24 16:29 Blood Pressure 122/81 05/28/24 16:29 Pulse Oximetry 98 05/28/24 16:29 Oxygen Delivery Me thod Room Air 05/28/24 16:29 MDM - Asthma Medical Decision Making Patient presents here with asthma exacerbation she has been well-appearing here no signs of pneumonia we will place her on prednisone we will set her up for nebulizer machine. She is to follow-up with her PCP return if worsening. Medical Records I reviewed the patient's medical records. XR interpretation done by ED provider, pending radiology final review ED provider radiology interpretation(s): Chest x-ray no acute normality Discharge Plan Discharge Patient Disposition: Home Clinical Impression: Asthma with acute exacerbation Condition: Stable Prescriptions: New prednisone 50 mg tablet 50 mg PO DAILY Qty: 5 0RF albuterol sulfate 2.5 mg /3 mL (0.083 %) solution for nebulization 2.5 mg INHALATION Q4H PRN (Reason: shortness of breath or wheezing) Qty: 90 0RF Discharge Orders: Discharge ED (Routine); Ordered 05/28/24 Ordered By: Ari Palumbo Other Ambulatory Orders: DME: Nebulizer with Neb Kit (Order) Location: None Selected Ordered By: Ari Palumbo Discharge Diet: Advance as tolerated Discharge Activity: Resume usual activity Patient Instructions: Asthma (ED) Print Language: Haitian Coding Level of Care Code ED Engineering Technician Parking for Bk Evans
--- NOTE | 2024-05-28 16:55 | XRR_ITS ---
PROCEDURE INFORMATION: Exam: XR Chest Exam date and time: 05/28/2024 4:59 PM Age: 23 years old Clinical indication: Shortness of breath; PT presents with complaint of asthma flare up. PT states she feels like there is a lot of junk in her chest. PT states she feels wheezy. PT airway patent, respirations even and unlabored. PT sounds congested. PT states she used her inhaler today with no relief. ; Additional info: SOB TECHNIQUE: Imaging protocol: Radiologic exam of the chest. Views: 1 view. COMPARISON: CR XR chest 1V portable [id number] 03/31/2024 10:18 PM FINDINGS: Lungs: Unremarkable. No consolidation. Pleural spaces: Unremarkable. No pleural effusion. No pneumothorax. Heart/Mediastinum: Unremarkable. No cardiomegaly. Bones/joints: Unremarkable. XR/XR chest 1V portable [id number] IMPRESSION: No acute findings.
[2024-05-28 17:20] VITALS: PULSE 66; RESP 18; O2SAT 98
[2024-05-28] MEDS: ipratropium-albuterol 3 mL Neb INHALATION (17:24)
[2024-05-28] MEDS: predniSONE 20 mg Tablet 60 MG PO (17:35)
== END 2024-05-28 17:45 | disposition home or self-care (01) ==
PROVIDERS: Emergency Provider Emergency Medicine
DX: J45.901 Unspecified asthma with (acute) exacerbation (principal)
CPT/HCPCS: 71045; 94640; 99283; J7512; J9999

== ENCOUNTER 2024-05-31 18:17 | Emergency (ER) | payer MEDICAID, SELFPAY ==
[2024-05-31 18:23] VITALS: BP 118/80; PULSE 83; TEMP 36.4; O2SAT 98; BMI 29.9
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
[2024-05-31] MEDS: HYDROcodone-acetaminophen 5-325 mg Tablet 1 TAB PO (21:17)
[2024-05-31 21:20] VITALS: BP 130/79; PULSE 83; O2SAT 97
== END 2024-05-31 21:54 | disposition home or self-care (01) ==
PROVIDERS: Emergency Provider Physician Assistant
DX: S20.219A Contusion of unspecified front wall of thorax, initial encounter (principal); V89.2XXA Person injured in unspecified motor-vehicle accident, traffic, initial encounter
CPT/HCPCS: 71100; 99283; J9999

== ENCOUNTER 2024-06-22 18:15 | Emergency (ER) | payer MEDICAID, SELFPAY ==
[2024-06-22 18:20] VITALS: BP 124/75; PULSE 101; RESP 17; TEMP 36.7; O2SAT 97; BMI 26.6
--- NOTE | 2024-06-22 19:22 | ED_ITS ---
HPI - Abdominal Pain 2 General: Chief Complaint: Abdominal Pain Stated Complaint: spotting severe cramping n/v Time Seen by Provider: 06/22/24 19:15 History of Present Illness: 23-year-old female with lower abdominal pain diffusely over the past 4 days. Has had nausea and occasional vomiting. No diarrhea. No dysuria. Does have occasional upper abdominal pain and flank pain as well. States that she has noticed some blood after she urinates. She states that she is a little over a month since her last period which is unusual for her. She does have a history of a tubal ligation a year ago. Related Data Date of Last Menstrual Period: 06/09/24 Previous Rx's ?Medication ?Instructions ?Recorded albuterol sulfate 2.5 mg/3 mL 2.5 mg (3 mL) inhalation Q4H PRN 05/28/24 (0.083 %) solution for nebulization shortness of breat h or wheezing #90 mL prednisone 50 mg tablet 50 mg PO DAILY #5 tabs 05/28 dicyclomine 20 mg tablet 20 mg PO QID #20 tabs ondansetron 4 mg disintegrating 4 mg PO Q8H 5 days #15 tabs 06/22/24 tablet Allergies Allergy/AdvReac Type Severity Reaction Status Date / Time chlorhexidine Allergy ALGY-Hives Verified 05/31/24 18:28 magnesium sulfate Allergy Unknown Verified 05/31/24 18:28 [facility] ED 2 Female Reproductive History: Date of last menstrual period: 06/09/24 Physical Exam 2 Const: COMMON NORMALS: no acute distress, average body habitus, patient oriented x3, no limitations, healthy appearing, alert and well nourished Neck/C-Spine: COMMON NORMALS: no JVD Resp: COMMON NORMALS: normal respiratory effort, No retractions, No use of accessory muscles, clear to auscultation bilaterally and percussion normal A USCULTATION: clear to auscultation bilaterally PERCUSSION: percussion normal Cardio: COMMON NORMALS: no JVD, regular rate, regular rhythm, S1 normal heart sound present, S2 normal heart sound present, No gallops present (Cardio), No clicks present (Cardio), No murmurs present (Cardio), No rub (Cardio) and Peripheral pulses 2+ throughout RATE: regular rate RHYTHM: regular rhythm HEART SOUNDS: S1 normal heart sound present and S2 normal heart sound present PERIPHERAL PULSES: Peripheral pulses 2+ throughout GI: COMMON NORMALS: Normal to inspection, nondistended, normoactive bowel sounds present, Soft to palpation, No hepatosplenomegaly present, no masses and no bruits PALPATION: Yes Soft to palpation and Yes No hepatosplenomegaly present OTHER: Diffuse lower abdominal tenderness equal in both left lower quadrant and right lower quadrant. Some mild upper abdominal tenderness diffusely. Neuro: COMMON NORMALS: patient oriented x3 SENSORIUM/ORIENTATION: Yes alert Course 2 Vital Signs: Vital signs: Vital Signs Temperature 98.1 F 06/22/24 18:20 Pulse Rate 78 06/22/24 20:02 Respiratory Rate 18 06/22/24 19:38 Blood Pressure 128/69 06/22/24 20:02 Pulse Oximetry 99 06/22/24 20:02 Oxygen Delivery Me thod Room Air 06/22/24 19:48 MDM - Abdominal Pain Medical Decision Making Patient with lower abdominal pain nausea vomiting diarrhea and some blood after wiping when on the toilet. CT today shows findings consistent with enteritis. Patient does not appear to be septic. Feeling better after treatment in the ER. Will discharge home with Zofran and Bentyl. Do not see an indication of surgical abdomen at this time. Lab Data 06/22/24 19:43 06/22/24 19:43 Labs/Radiology: Radiology Impressions Abdomen/Pelvis CT 06/22/24 19:52 IMPRESSION: 1. Prominent fluid in the small bowel without dilation may reflect an enteritis. 2. Very mild bilateral hydronephrosis, please correlate for possible urinary tract infection, negative for obstructing lesion seen. 3. Bilateral tubal ligation clips. Laboratory Results WBC 7.26 10^3/uL (3.29-11.43) 06/22/24 19:43 RBC 4.89 10^6/uL (3.85-5.65) 06/22/24 19:43 Hgb 14.20 g/dL (11.27-16.99) 06/22/24 19:43 Hct 42.3 % (36-47) 06/22/24 19:43 MCV 86.5 fl (85-98) 06/22/24 19:43 MCH 29.0 pg (27-33) 06/22/24 19:43 MCHC 33.6 g/dL (30-55) 06/22/24 19:43 RDW 12.3 % (12.1-15.1) 06/22/24 19:43 Plt Count 210 10^3/cmm (157-399) 06/22/24 19:43 MPV 9.9 fL (7.4-10.4) 06/22/24 19:43 Neut % (Auto) 46.9 % 06/22/24 19:43 Lymph % (Auto) 44.8 % 06/22/24 19:43 [place] % (Auto) 6.1 % 06/22/24 19:43 Eos % (Auto) 0.8 % 06/22/24 19:43 Baso % (Auto) 1.1 % 06/22/24 19:43 Neut # (Auto) 3.41 10^3/uL (1.8-7.7) 06/22/24 19:43 Lymph # (Auto) 3.3 10^3/uL (0.8-4.8) 06/22/24 19:43 [place] # (Auto) 0.4 10^3/uL (0.2-0.9) 06/22/24 19:43 Eos # (Auto) 0.1 10^3/uL (0.0-0.8) 06/22/24 19:43 Baso # (Auto) 0.1 10^3/uL (0.0-0.1) 06/22/24 19:43 Nucleated RBC % (auto) 0 % 06/22/24 19:43 Nucleated RBCs # 0.0 /100WBC 06/22/24 19:43 Sodium 141 mmol/L (136-145) 06/22/24 19:43 Potassium 4.1 mmol/L (3.5-5.1) 06/22/24 19:43 Chloride 106 mmol/L (98-107) 06/22/24 19:43 Carbon Dioxide 21 mmol/L (22-29) L 06/22/24 19:43 Anion Gap 18.1 (5-19) 06/22/24 19:43 BUN 11 mg/dL (6-20) 06/22/24 19:43 Creatinine 0.5 mg/dL (0.5-0.9) 06/22/24 19:43 GFR Calculation 150.3 mL/min (90-130) H 06/22/24 19:43 Glucose 82 mg/dL (65-115) 06/22/24 19:43 Calculated Osmolality 290 mOsm/kg (285-295) 06/22/24 19:43 Calcium 9.0 mg/dL (8.5-10.5) 06/22/24 19:43 Total Bilirubin 0.2 mg/dL (0.15-1.2) 06/22/24 19:43 AST 15 U/L (0-32) 06/22/24 19:43 ALT 11 U/L (0-33) 06/22/24 19:43 Alkaline Phosphatase 77 U/L (35-105) 06/22/24 19:43 Total Protein 7.3 g/dL (6.6-8.7) 06/22/24 19:43 Albumin 4.4 g/dL (3.5-5.2) 06/22/24 19:43 Globulin 2.9 g/dL (1.3-4.6) 06/22/24 19:43 HCG, Qual Negative (Negative) 06/22/24 19:43 Urine Color Yellow (Yellow) 06/22/24 19:18 Urine Appearance Clear (CLEAR) 06/22/24 19:18 Urine pH 6.5 (5-7) 06/22/24 19:18 Ur Specific [place] 1.027 (1.005-1.030) 06/22/24 19:18 Urine Protein Negative (Negative) 06/22/24 19:18 Urine Glucose (UA) Negative (Normal) 06/22/24 19:18 Urine Ketones Trace (Negative) 06/22/24 19:18 Urine Blood 3+ (Negative) A 06/22/24 19:18 Urine Nitrate Negative (Negative) 06/22/24 19:18 Urine Bilirubin Negative (Negative) 06/22/24 19:18 Urine Urobilinogen 1.0 mg/dL (Negative) 06/22/24 19:18 Ur Leukocyte Esterase Negative (Negative) 06/22/24 19:18 Urine RBC 0-2 /hpf (0-2) 06/22/24 19:18 Urine WBC 0-5 /hpf (0-5) 06/22/24 19:18 Ur Squamous Epith Cells 6-10 /hpf (0-5) 06/22/24 19:18 Amorphous Sediment Not Reportable 06/22/24 19:18 Urine Bacteria 1+ /hpf (NONE) H 06/22/24 19:18 Hyaline Casts 1.21 /lpf 06/22/24 19:18 All radiology interpretation(s) finalized by discharge Discharge Plan Discharge Patient Disposition: Home Clinical Impression: Enteritis Condition: Stable Prescriptions: New ondansetron 4 mg tablet,disintegrating 4 mg PO Q8H 5 Days Qty: 15 0RF dicyclomine 20 mg tablet 20 mg PO QID Qty: 20 0RF No Action prednisone 50 mg tablet 50 mg PO DAILY Qty: 5 0RF albuterol sulfate 2.5 mg /3 mL (0.083 %) solution for nebulization 2.5 mg INHALATION Q4H PRN (Reason: shortness of breath or wheezing) Qty: 90 0RF Discharge Orders: Discharge ED (Routine); Ordered 06/22/24 Ordered By: Freedom Dela Cruz Discharge Diet: GI Soft Patient Instructions: Opioid Safety, Pain Management Print Language: Dominican Coding Level of Care Code ED Sat Tutor for Bk Evans
[2024-06-22 19:38] VITALS: RESP 18
[2024-06-22] MEDS: sodium chloride 0.9% 1,000 ML 999 ML IV (19:38)
[2024-06-22] MEDS: ondansetron 2 mg/ML SDV 2 mL 4 MG IVP (19:38)
[2024-06-22] MEDS: morphine 4 mg/mL SDV 1 mL IVP (19:38)
[2024-06-22 19:41] LABS: Bilirubin Urine Negative (Negative); Blood Urine 3+ (Negative); Glucose Urine UA Negative (Normal); Ketones Urine Trace (Negative); Leukocyte Esterase Urine Negative (Negative); Nitrate Urine Negative (Negative); Protein Urine Negative (Negative); Specific Gravity, Urine 1.027 (1.005-1.030); Urine Appearance Clear (CLEAR); Urine Color Yellow (Yellow); pH Urine 6.5 (5-7)
[2024-06-22 19:42] LABS: HCG Qualitative Urine. Negative (Negative)
[2024-06-22 19:44] LABS: Add Urine Microscopic? YES; Bacteria Urine 1+ /hpf; Hyaline Casts Urine 1.21 /lpf; RBC Urine 0-2 /hpf (0-2); WBC Urine 0-5 /hpf (0-5)
[2024-06-22 19:48] VITALS: BP 114/71; PULSE 77; O2SAT 97
[2024-06-22 19:51] LABS: Basophils # 0.1 10^3/uL (0.0-0.1); Basophils % 1.1 %; Eosinophils # 0.1 10^3/uL (0.0-0.8); Eosinophils % 0.8 %; Hematocrit 42.3 % (36-47); Lymphocytes # 3.3 10^3/uL (0.8-4.8); Lymphocytes % 44.8 %; Mean Corpuscular HGB Conc 33.6 g/dL (30-55); Mean Corpuscular Volume 86.5 fl (85-98); Mean Platelet Volume 9.9 fL (7.4-10.4); Monocytes # 0.4 10^3/uL (0.2-0.9); Monocytes % 6.1 %; Neutrophils # 3.41 10^3/uL (1.8-7.7); Neutrophils % 46.9 %; Nucleated Red Blood Cells % 0 %; Platelet Count 210 10^3/cmm (157-399); Red Blood Count 4.89 10^6/uL (3.85-5.65); Red Cell Distribution Width 12.3 % (12.1-15.1); White Blood Count 7.26 10^3/uL (3.29-11.43)
--- NOTE | 2024-06-22 19:52 | CTR_ITS ---
PROCEDURE INFORMATION: Exam: CT Abdomen And Pelvis With Contrast Exam date and time: 06/22/2024 8:38 PM Age: 23 years old Clinical indication: Abdominal pain; Generalized; Prior surgery; Surgery date: 6+ months; Surgery type: Tubal; Additional info: Abd pain TECHNIQUE: Imaging protocol: Computed tomography of the abdomen and pelvis with contrast. Radiation optimization: All CT scans at this facility use at least one of these dose optimization techniques: automated exposure control; mA and/or kV adjustment per patient size (includes targeted exams where dose is matched to clinical indication); or iterative reconstruction. Contrast material: OMNIPAQUE 350; Contrast volume: 100 ml; Contrast route: INTRAVENOUS (IV); COMPARISON: CR (CHEST, ) 05/31/2024 7:28 PM RADIATION DOSE METRICS: Total DLP (mGy-cm): 714.1 FINDINGS: Liver: Normal. No mass. Gallbladder and biliary ducts: Normal. No calcified stones. No ductal dilation. Pancreas: Normal. No ductal dilation. Spleen: Normal. No splenomegaly. Adrenal glands: Normal. No mass. Kidneys and ureters: Very mild bilateral hydronephrosis, please correlate for possible urinary tract infection, negative for obstructing lesion seen. Stomach and bowel: Prominent fluid in the small bowel without dilation may reflect an enteritis. Appendix: No evidence of appendicitis. Intraperitoneal space: Unremarkable. No free air. No significant fluid collection. Vasculature: Unremarkable. No abdominal aortic aneurysm. Lymph nodes: Unremarkable. No enlarged lymph nodes. Urinary bladder: Unremarkable as visualized. Reproductive: Bilateral tubal ligation clips. Bones/joints: Unremarkable. No acute fracture. Soft tissues: Unremarkable. CT/CT abdomen pelvis w con* [id number] IMPRESSION: 1. Prominent fluid in the small bowel without dilation may reflect an enteritis. 2. Very mild bilateral hydronephrosis, please correlate for possible urinary tract infection, negative for obstructing lesion seen. 3. Bilateral tubal ligation clips.
[2024-06-22 20:02] VITALS: BP 128/69; PULSE 78; O2SAT 99
[2024-06-22 20:09] LABS: Alanine Aminotransferase 11 U/L (0-33); Albumin Level 4.4 g/dL (3.5-5.2); Alkaline Phosphatase 77 U/L (35-105); Aspartate Amino Transferase 15 U/L (0-32); Blood Urea Nitrogen 11 mg/dL (6-20); Carbon Dioxide 21 mmol/L (22-29); Chloride 106 mmol/L (98-107); Globulin 2.9 g/dL (1.3-4.6); Glomerular Filtration Rate 150.3 mL/min (90-130); Glucose 82 mg/dL (65-115); Osmolality Calculated 290 mOsm/kg (285-295); Sodium 141 mmol/L (136-145); Total Bilirubin 0.2 mg/dL (0.15-1.2); Total Protein 7.3 g/dL (6.6-8.7)
[2024-06-22 20:24] LABS: HCG, Serum Qual Negative (Negative)
[2024-06-22 20:27] LABS: Anion Gap 18.1 (5-19); Potassium 4.1 mmol/L (3.5-5.1)
[2024-06-22] MEDS: iohexol 350 mg/mL 500 mL Btl (per mL) IV (20:42)
[2024-06-22 22:09] VITALS: BP 116/71; PULSE 66; O2SAT 97
== END 2024-06-22 22:10 | disposition home or self-care (01) ==
PROVIDERS: Student in an Organized Health Care Education/Training Program; Emergency Provider Emergency Medicine
DX: K52.9 Noninfective gastroenteritis and colitis, unspecified (principal)
CPT/HCPCS: 74177; 80053; 81001; 81025; 84703; 85025; 96374; 96375; 99285; J2270; J2405; J7030

== ENCOUNTER 2024-07-02 13:24 | Emergency (ER) | payer MEDICAID, SELFPAY ==
[2024-07-02 13:30] VITALS: BP 133/67; PULSE 91; RESP 16; TEMP 37.1; O2SAT 98; BMI 27.4
[2024-07-02 14:16] LABS: Basophils % 0.6 %; Eosinophils # 0.1 10^3/uL (0.0-0.8); Eosinophils % 0.9 %; Hematocrit 45.8 % (36-47); Lymphocytes # 2.4 10^3/uL (0.8-4.8); Mean Corpuscular Volume 88.1 fl (85-98); Mean Platelet Volume 10.3 fL (7.4-10.4); Monocytes # 0.4 10^3/uL (0.2-0.9); Monocytes % 5.5 %; Neutrophils # 3.71 10^3/uL (1.8-7.7); Neutrophils % 56.8 %; Nucleated Red Blood Cells % 0 %; Platelet Count 192 10^3/cmm (157-399); Red Cell Distribution Width 12.4 % (12.1-15.1); White Blood Count 6.53 10^3/uL (3.29-11.43)
[2024-07-02 14:30] LABS: HCG, Serum Qual Negative (Negative)
[2024-07-02 14:38] LABS: Alanine Aminotransferase 9 U/L (0-33); Albumin Level 4.4 g/dL (3.5-5.2); Alkaline Phosphatase 80 U/L (35-105); Anion Gap 17.2 (5-19); Aspartate Amino Transferase 12 U/L (0-32); Blood Urea Nitrogen 10 mg/dL (6-20); Calcium 9.4 mg/dL (8.5-10.5); Carbon Dioxide 22 mmol/L (22-29); Chloride 103 mmol/L (98-107); Creatinine Clr Calc Pharmacy 124.3931; Globulin 3.5 g/dL (1.3-4.6); Glucose 84 mg/dL (65-115); Lipase 23 U/L (13-60); Osmolality Calculated 284 mOsm/kg (285-295); Potassium 4.2 mmol/L (3.5-5.1); Sodium 138 mmol/L (136-145); Total Bilirubin 0.6 mg/dL (0.15-1.2); Total Protein 7.9 g/dL (6.6-8.7)
[2024-07-02 15:47] VITALS: BP 129/81; PULSE 76; O2SAT 98
[2024-07-02 15:52] LABS: Bacteria Urine None Seen /hpf; RBC Urine 0-2 /hpf (0-2); Squamous Epithelial Cell Urine 0-5 /hpf (0-5); WBC Urine 0-5 /hpf (0-5)
[2024-07-02 15:54] LABS: Add Urine Microscopic? YES; Bilirubin Urine Neg (Negative); Blood Urine Neg (Negative); Glucose Urine UA Norm (Normal); Ketones Urine Negative (Negative); Leukocyte Esterase Urine Negative (Negative); Nitrate Urine Negative (Negative); Protein Urine Neg (Negative); Specific Gravity, Urine 1.025 (1.005-1.030); Urine Appearance Clear (CLEAR); Urine Color Dark Yellow (Yellow); Urobilinogen Urine Neg (Negative); pH Urine 5 (5-7)
[2024-07-02] MEDS: sodium chloride 0.9% 1,000 ML 999 ML IV (15:55)
--- NOTE | 2024-07-02 15:56 | ED_ITS ---
HPI - Nausea/Vomiting/Diarrhea 2 General: Chief complaint: Nausea/Vomiting/Diarrhea Stated complaint: abd pains Time Seen by Provider: 07/02/24 15:34 Source: patient Mode of arrival: ambulatory Limitations: no limitations History of Present Illness: 23-year-old female who states that over the last week she has been having nausea vomiting along with abdominal cramping she was seen here recently and told she had enteritis she is on Zofran states that it improved she is out but having some worsening cramping and vomiting she denies any diarrhea denies any fevers. Rates her pain a 4 out of 10 currently. Associated nausea: Yes Associated symtoms: Reports nausea; Denies chest pain, dysuria or headache(s) Related Data Previous Rx's ?Medication ?Instructions ?Recorded albuterol sulfate 2.5 mg/3 mL 2.5 mg (3 mL) inhalation Q4H PRN 05/28/24 (0.083 %) solution for nebulization shortness of breat h or wheezing #90 mL prednisone 50 mg tablet 50 mg PO DAILY #5 tabs 05/28 dicyclomine 20 mg tablet 20 mg PO QID #20 tabs metoclopramide HCl 10 mg tablet 10 mg PO Q6H PRN nause a and 07/02/24 (Reglan) vomiting #20 tabs Allergies Allergy/AdvReac Type Severity Reaction Status Date / Time chlorhexidine Allergy ALGY-Hives Verified 05/31/24 18:28 magnesium sulfate Allergy Unknown Verified 05/31/24 18:28 Review of Systems 2 Const: Denies: fever(s), chills, body aches or change in appetite ENMT: Denies: throat pain or dental pain Card: Denies: chest pain Resp: Denies: dyspnea GI: Reports: abdominal pain, nausea and vomiting; Denies: diarrhea : Denies: dysuria Musc: Denies: neck pain or back pain Skin/Breast: Denies: rash Neuro: Denies: headache(s) Physical Exam 2 Const: COMMON NORMALS: no acute distress, patient oriented x3 and healthy appearing HENMT: COMMON NORMALS: normocephalic and atraumatic HEAD & SCALP: n ormocephalic and atraumatic Neck/C-Spine: COMMON NORMALS: full ROM and supple Chest: COMMONS NORMALS: normal inspection of the chest Resp: COMMON NORMALS: normal respiratory effort Cardio: COMMON NORMALS: regular rate RATE: regular rate GI: COMMON NORMALS: Normal to inspection, nondistended, normoactive bowel sounds present, Soft to palpation, non-tender and no masses PALPATION: Yes Soft to palpation Extremity: COMMON NORMALS: normal to inspection and full ROM Neuro: COMMON NORMALS: patient oriented x3, moves all extremities and no focal motor deficits Psych: COMMON NORMALS: mental status grossly normal, Normal thought process present and cooperative THOUGHT PROCESS: Normal thought process present Skin: COMMON NORMALS: no rashes or lesions noted and no wounds GENERAL SKIN EXAM: no rashes or lesions noted Course 2 Vital Signs: Vital signs: Vital Signs Temperature 98.8 F 07/02/24 13:30 Pulse Rate 57 L 07/02/24 16:03 Respiratory Rate 16 07/02/24 13:30 Blood Pressure 111/69 07/02/24 16:03 Pulse Oximetry 96 07/02/24 16:03 Oxygen Delivery Me thod Room Air 07/02/24 16:03 MDM - Nausea/Vomiting/Diarrhea Medical Decision Making Patient presents here with vomiting along with some abdominal pain her exam here is benign blood works normal she had a recent CT scan showed no acute abnormalities she feels much improved after Reglan we will prescribe her Reglan she is to follow-up and return if worsening she understands agrees to plan Medical Records I reviewed the patient's medical records. Lab Data I reviewed the patient's lab results. 07/02/24 14:11 07/02/24 14:11 Laboratory Results WBC 6.53 10^3/uL (3.29-11.43) 07/02/24 14:11 RBC 5.20 10^6/uL (3.85-5.65) 07/02/24 14:11 Hgb 15.10 g/dL (11.27-16.99) 07/02/24 14:11 Hct 45.8 % (36-47) 07/02/24 14:11 MCV 88.1 fl (85-98) 07/02/24 14:11 MCH 29.0 pg (27-33) 07/02/24 14:11 MCHC 33.0 g/dL (30-55) 07/02/24 14:11 RDW 12.4 % (12.1-15.1) 07/02/24 14:11 Plt Count 192 10^3/cmm (157-399) 07/02/24 14:11 MPV 10.3 fL (7.4-10.4) 07/02/24 14:11 Neut % (Auto) 56.8 % 07/02/24 14:11 Lymph % (Auto) 36.0 % 07/02/24 14:11 [place] % (Auto) 5.5 % 07/02/24 14:11 Eos % (Auto) 0.9 % 07/02/24 14:11 Baso % (Auto) 0.6 % 07/02/24 14:11 Neut # (Auto) 3.71 10^3/uL (1.8-7.7) 07/02/24 14:11 Lymph # (Auto) 2.4 10^3/uL (0.8-4.8) 07/02/24 14:11 [place] # (Auto) 0.4 10^3/uL (0.2-0.9) 07/02/24 14:11 Eos # (Auto) 0.1 10^3/uL (0.0-0.8) 07/02/24 14:11 Baso # (Auto) 0.0 10^3/uL (0.0-0.1) 07/02/24 14:11 Nucleated RBC % (auto) 0 % 07/02/24 14:11 Nucleated RBCs # 0.0 /100WBC 07/02/24 14:11 Sodium 138 mmol/L (136-145) 07/02/24 14:11 Potassium 4.2 mmol/L (3.5-5.1) 07/02/24 14:11 Chloride 103 mmol/L (98-107) 07/02/24 14:11 Carbon Dioxide 22 mmol/L (22-29) 07/02/24 14:11 Anion Gap 17.2 (5-19) 07/02/24 14:11 BUN 10 mg/dL (6-20) 07/02/24 14:11 Creatinine 0.7 mg/dL (0.5-0.9) 07/02/24 14:11 GFR Calculation 102.0 mL/min (90-130) 07/02/24 14:11 Glucose 84 mg/dL (65-115) 07/02/24 14:11 Calculated Osmolality 284 mOsm/kg (285-295) L 07/02/24 14:11 Calcium 9.4 mg/dL (8.5-10.5) 07/02/24 14:11 Total Bilirubin 0.6 mg/dL (0.15-1.2) 07/02/24 14:11 AST 12 U/L (0-32) 07/02/24 14:11 ALT 9 U/L (0-33) 07/02/24 14:11 Alkaline Phosphatase 80 U/L (35-105) 07/02/24 14:11 Total Protein 7.9 g/dL (6.6-8.7) 07/02/24 14:11 Albumin 4.4 g/dL (3.5-5.2) 07/02/24 14:11 Globulin 3.5 g/dL (1.3-4.6) 07/02/24 14:11 Lipase 23 U/L (13-60) 07/02/24 14:11 HCG, Qual Negative (Negative) 07/02/24 14:11 Urine Color Dark yellow (Yellow) A 07/02/24 15:42 Urine Appearance Clear (CLEAR) 07/02/24 15:42 Urine pH 5 (5-7) 07/02/24 15:42 Ur Specific [place] 1.025 (1.005-1.030) 07/02/24 15:42 Urine Protein Neg (Negative) 07/02/24 15:42 Urine Glucose (UA) Norm (Normal) 07/02/24 15:42 Urine Ketones Negative (Negative) 07/02/24 15:42 Urine Blood Neg (Negative) 07/02/24 15:42 Urine Nitrate Negative (Negative) 07/02/24 15:42 Urine Bilirubin Neg (Negative) 07/02/24 15:42 Urine Urobilinogen Neg mg/dL (Negative) 07/02/24 15:42 Ur Leukocyte Esterase Negative (Negative) 07/02/24 15:42 Urine RBC 0-2 /hpf (0-2) 07/02/24 15:42 Urine WBC 0-5 /hpf (0-5) 07/02/24 15:42 Ur Squamous Epith Cells 0-5 /hpf (0-5) 07/02/24 15:42 Amorphous Sediment Not Reportable 07/02/24 15:42 Urine Bacteria None seen /hpf (NONE) 07/02/24 15:42 Hyaline Casts 0.40 /lpf 07/02/24 15:42 No radiology studies performed this visit Discharge Plan Discharge Patient Disposition: Home Clinical Impression: Vomiting, Abdominal pain Condition: Stable Prescriptions: New metoclopramide HCl [Reglan] 10 mg tablet 10 mg PO Q6H PRN (Reason: nausea and vomiting) Qty: 20 0RF No Action dicyclomine 20 mg tablet 20 mg PO QID Qty: 20 0RF prednisone 50 mg tablet 50 mg PO DAILY Qty: 5 0RF albuterol sulfate 2.5 mg /3 mL (0.083 %) solution for nebulization 2.5 mg INHALATION Q4H PRN (Reason: shortness of breath or wheezing) Qty: 90 0RF Discharge Orders: Discharge ED (Routine); Ordered 07/02/24 Ordered By: Ari Palumbo Discharge Diet: Advance as tolerated Discharge Activity: Resume usual activity Patient Instructions: Acute Nausea and Vomiting (ED), Abdominal Pain (ED) Print Language: Mauritian Coding Level of Care Code ED Field Contact Technician for Bk Evans
[2024-07-02] MEDS: diphenhydrAMINE 50 mg/mL SDV 1mL IVP (15:57)
[2024-07-02] MEDS: metoclopramide 5 mg/mL SDV 2 mL 10 MG IVP (15:58)
[2024-07-02 16:03] VITALS: BP 111/69; PULSE 57; O2SAT 96
[2024-07-02 17:24] VITALS: BP 106/62; PULSE 61; O2SAT 99
== END 2024-07-02 17:00 | disposition home or self-care (01) ==
PROVIDERS: Emergency Provider Emergency Medicine
DX: R10.9 Unspecified abdominal pain (principal); R11.2 Nausea with vomiting, unspecified; R19.7 Diarrhea, unspecified
CPT/HCPCS: 36415; 80053; 81001; 83690; 84703; 85025; 96361; 96374; 96375; 99284; J1200; J2765; J7030

== ENCOUNTER → 2024-10-17 09:45 | Outpatient (BNVA) | payer MEDICAID, SELFPAY | DX: R39.9 Unspecified symptoms and signs involving the genitourinary system (principal) | CPT/HCPCS: 81000; 87086 ==

== ENCOUNTER → 2024-10-24 09:31 | Outpatient (BNVA) | payer MEDICAID, SELFPAY | DX: N30.01 Acute cystitis with hematuria (principal) | CPT/HCPCS: 80053; 81000; 81025; 85025; 87086; 87491; 87591 ==

== ENCOUNTER 2024-10-27 11:35 | Outpatient (CLI) | payer MEDICAID, SELFPAY ==
--- NOTE | 2024-10-27 12:00 | CT_ITS ---
WS: [id number] CT ABDOMEN AND PELVIS NONCONTRAST HISTORY: flank pain x1 week, possible stone, LEFT sided pain. TECHNIQUE: Imaging performed through the abdomen and pelvis. Coronal and sagittal reformats are submitted. All CT scans at [facility] use at least one of these dose optimization techniques: automated exposure control; mA and/or kV adjustment per patient size (includes targeted exams where dose is matched to clinical indication); or iterative reconstruction. DLP: 338.48 mGy.cm COMPARISON: 06/22/2024 Lower thorax: Lung bases are clear. Visualized heart is normal. No hiatal hernia. Liver: Liver is top normal size. No intrahepatic mass or dilatation of the duct identified. Gallbladder: Normal gallbladder. No pericholecystic fluid or cholelithiasis. No gallbladder wall thickening. Pancreas: Limited visualization without IV or oral contrast. Spleen: Normal. Adrenal glands: Normal. No mass. Right kidney: 2 mm nonobstructing calcification in the mid kidney. No perinephric stranding or obstruction. Left kidney: No perinephric stranding or obstruction. Tiny calcification lower pole. The ureter is not dilated. No ureteral calcification or stone. Aorta: Normal abdominal aorta, no aneurysm or atherosclerosis. No free fluid, intraperitoneal air or significant lymphadenopathy. GI tract: Normal noncontrast imaging of the stomach, small bowel and colon. No obstruction or wall thickening. Normal appendix. Abdominal wall: Negative. No hernia. Pelvis: Minimally distended urinary bladder. Uterus is normally positioned and anteverted. No adnexal mass. No free fluid. Bilateral tubal ligation clips. Osseous structures: Unremarkable. CT/CT kidney stone [id number] IMPRESSION: 1. No renal obstruction or hydronephrosis. 2. Very tiny bilateral nonobstructing renal calculi. 3. No free fluid or adenopathy. 4. Normal appendix. 5. No GI tract obstruction.
== END 2024-10-27 11:36 | disposition home or self-care (01) ==
LOC: RAD 11:35
DX: N28.89 Other specified disorders of kidney and ureter (principal)
CPT/HCPCS: 74176